=== PATIENT | male | born 1970 | race Caucasian/White ===

== ENCOUNTER → 2024-03-04 07:28 | Outpatient (REF) | payer OTHER, SELFPAY | LOC: RAD 07:28 | PROVIDERS: ATTENDING PHYSICIAN Otolaryngology; FAMILY PHYSICIAN Family Medicine | DX: J32.0 Chronic maxillary sinusitis (principal) | CPT/HCPCS: 70486 ==

== ENCOUNTER → 2024-06-10 17:14 | Outpatient (REF) | payer OTHER, SELFPAY | LOC: CLAB 17:14 | PROVIDERS: ATTENDING PHYSICIAN Otolaryngology | DX: J32.0 Chronic maxillary sinusitis (principal) | CPT/HCPCS: 88304; 87070; 87077; 87205 ==